=== PATIENT | female | born 1945 | race Caucasian/White ===

== ENCOUNTER 2016-11-05 17:39 | Emergency (ER) | payer MEDICARE, OTHER ==
[~2016-11-05] VITALS: Ht 165.1 cm; Wt 58.5 kg
[~2016-11-05 17:39] MED LIST: CARB100T2 PO; CARB200T43 PO; CYAN100 PO; ENAL20TA PO; GABA300C16 PO; MECL25TA2 PO
[2016-11-05 17:46] VITALS: Ht 165.1 cm; Wt 58.5 kg
[2016-11-05 19:09] VITALS: BP 196/80
[2016-11-05] MEDS ORDERED: SOD CHLORIDE 0.9% 500 ML IV STA (19:40)
[2016-11-05] MEDS ORDERED: ACETAMINOPHEN 500 MG TAB PO STA (19:40)
[2016-11-05] MEDS ORDERED: METOCLOPRAMIDE 10 MG INJ IV STA (19:40)
--- NOTE | 2016-11-05 19:49 | ERD ---
ER Documentation Chief Complaint Date/Time DATE: 11/05/16 TIME: 19:41 Chief Complaint HEADACHE,HIGH BLOOD PRESSURE STARTED TODAY HPI Patient is a 70-year-old female who presents with gradual onset, constant, moderate occipital and right parietal headache since this afternoon. Patient states that she has had similar headaches in the past in the setting of elevated blood pressure, and that her blood pressure has been elevated throughout the day. She reports that she is on treatment for urinary tract infection and has mild residual dysuria. She denies fever, vomiting, visual disturbance, stiff neck.The patient has been on the same antihypertensive regimen for the last 6 months, and saw her PMD 10 days ago. Her blood pressure is well controlled at that time. ROS All systems reviewed and are negative except as per history of present illness. Medications Home Meds Reported Medications Ergocalciferol (Vitamin D2) (VITAMIN D2) 50,000 Unit Capsule, 49451 UNIT PO Q7D , CAP 11/05/16 Oxcarbazepine* (Oxcarbazepine*) 150 Mg Tablet, 75 MG PO QHS, TAB 11/05/16 Candesartan Cilexetil (Candesartan Cilexetil) 8 Mg Tablet, 8 MG PO DAILY, TAB 11/05/16 Gabapentin* (Gabapentin*) 400 Mg Capsule, 400 MG PO TID, #90 CAP 11/05/16 Discontinued Reported Medications Cyanocobalamin* (Vitamin B12*) 100 Mcg Tab, 100 MCG PO DAILY, TAB 04/19/15 Gabapentin* (Gabapentin*) 300 Mg Capsule, 300 MG PO QHS, #60 CAP 04/19/15 Discontinued Scripts Carbamazepine* (Carbamazepine*) 100 Mg Tab.chew, 200 MG PO BID, #60 TAB.CHEW Prov:TAMIE JONES DO 07/05/15 Enalapril Maleate* (Enalapril Maleate*) 20 Mg Tablet, 20 MG PO DAILY, #30 TAB Prov:ROXANA HILARIO DO 04/27/15 Meclizine Hcl* (Antivert*) 25 Mg Tablet, 25 MG PO Q6H Y for dizziness, #20 TAB Prov:FAUSTO HARRIS MD 04/25/15 Carbamazepine* (Carbamazepine* XR) 200 Mg Tab.er.12h, 200 MG PO Q12, #60 TAB.SA Prov:AMELIA CONNOLLY 04/19/15 Allergies Allergies: Coded Allergies: No Known Allergy (Unverified , 11/05/16) PMhx/Soc Past medical history: Hypertension, trigeminal neuralgia Past surgical history: None Social history: Denies tobacco or alcohol History of Surgery: Yes () Anesthesia Reaction: No Hx Neurological Disorder: Yes (TRIGEMINAL NEURALGIA) Hx Respiratory Disorders: No Hx Cardiac Disorders: No Hx Psychiatric Problems: No Hx Miscellaneous Medical Probl: Yes (HTN, HYPERCHOLESTEROLEMIA) Hx Alcohol Use: No Hx Substance Use: No Hx Tobacco Use: No FmHx Family History: No coronary disease, No diabetes Physical Exam Vitals Vital Signs Date Time Temp Pulse Resp B/P Pulse Ox O2 Delivery O2 Flow Rate FiO2 11/05/16 19:09 196/80 11/05/16 17:46 98.1 67 18 196/87 98 Physical Exam Const: Alert, no acute distress Head: Atraumatic Eyes: Normal Conjunctiva, No pallor, no icterus ENT: Normal External Ears, Nose and Mouth. Mucous membranes moist Neck: Full range of motion..~ No meningismus. No cervical paraspinal tenderness Resp: Clear to auscultation bilaterally, No wheezes, no rales Cardio: Regular rate and rhythm, no murmurs Abd: Soft, non tender, non distended. Normal bowel sounds Skin: No petechiae or rashes Back: No midline or flank tenderness Ext: No cyanosis, or edema Neur: Awake and alert, Cranial nerves II through XII intact bilaterally, strength and sensation full in 4 extremities. Psych: Normal Mood and Affect Result Diagram: 11/05/16 1950 Results 24 hrs Laboratory Tests Test 11/05/16 19:50 Urine Color STRAW Urine Clarity CLEAR Urine pH 6.0 Urine Specific [place] 1.006 Urine Ketones NEGATIVEmg/dL Urine Nitrite NEGATIVEmg/dL Urine Bilirubin NEGATIVEmg/dL Urine Urobilinogen NEGATIVEmg/dL Urine Leukocyte Esterase 2+[place]/ul Urine Microscopic RBC 0/HPF Urine Microscopic WBC 4/HPF Urine Hemoglobin NEGATIVEmg/dL Urine Glucose NEGATIVEmg/dL Urine Total Protein NEGATIVEmg/dl Sodium Level 137mmol/L Potassium Level 4.3mmol/L Chloride Level 99mmol/L Carbon Dioxide Level 31mmol/L Anion Gap 11 Blood Urea Nitrogen 18mg/dl Creatinine 0.90mg/dl Glucose Level 91mg/dl Calcium Level 9.7mg/dl Current Medications Medications (Trade) Dose Ordered Sig/Louie Route PRN Reason Start Time Stop Time Status Last Admin Dose Admin Sodium Chloride (NS) 500 ml @ 500 mls/hr Q1H STAT IV 11/05/16 19:40 11/05/16 20:39 DC 11/05/16 20:28 Acetaminophen (Tylenol Tab) 1,000 mg ONCE STAT PO 11/05/16 19:40 11/05/16 19:41 DC 11/05/16 20:28 Metoclopramide HCl (Reglan) 10 mg ONCE STAT IV 11/05/16 19:40 11/05/16 19:41 DC 11/05/16 20:27 Procedures/MDM Patient is a 70-year-old female who presents with headache in the setting of hypertension. She states that she frequently has similar headaches when her blood pressure is running high. The headache was not sudden onset and there are no red flags for subarachnoid hemorrhage or meningitis. She has a normal neurological exam and no neurologic symptoms. Her symptoms resolved with IV fluids and Reglan. She has normal electrolytes, no evidence of endorgan damage , and no evidence of infection. I advised her to follow-up with her PMD in the next 2-3 days for blood pressure recheck, and to take Tylenol for further headache at home. Departure Diagnosis: Primary Impression: Headache Headache type: unspecified Headache chronicity pattern: episodic headache Intractability: not intractable Qualified Code: R51 - Nonintractable episodic headache, unspecified headache type Additional Impression: Hypertension Hypertension type: essential hypertension Qualified Code: I10 - Essential hypertension Condition: [place] Coronel MD Nov 05, 2016 19:49
[2016-11-05 20:14] LABS: ADD UMIC YES; UR ASCORBIC ACID NEGATIVE (NEGATIVE); UR BILIRUBIN (Dip) NEGATIVE (NEGATIVE); UR BLOOD (Dip) NEGATIVE (NEGATIVE); UR CLARITY CLEAR (CLEAR); UR COLOR STRAW (YELLOW); UR GLUCOSE (Dip) NEGATIVE (NEGATIVE); UR KETONES (Dip) NEGATIVE (NEGATIVE); UR LEUKOCYTE ESTERASE (Dip) 2+ Leu/ul (NEGATIVE); UR NITRITE (Dip) NEGATIVE (NEGATIVE); UR RBC 0 /HPF (0-5); UR SPECIFIC GRAVITY (Dip) 1.006 (1.003-1.030); UR TOTAL PROTEIN (Dip) NEGATIVE (NEGATIVE); UR UROBILINOGEN (Dip) NEGATIVE (NEGATIVE)
[2016-11-05] MEDS ORDERED: GABA400C14 PO (20:27)
[2016-11-05] MEDS ORDERED: CAND8TAB4 PO (20:28)
[2016-11-05] MEDS ORDERED: OXCA150T43 PO (20:28)
[2016-11-05] MEDS ORDERED: ERGO500037 PO (20:29)
[2016-11-05 20:40] LABS: CALCIUM 9.7 mg/dl (8.4-10.2); CREATININE 0.9 mg/dl (0.44-1.00); POTASSIUM 4.3 mmol/L (3.5-5.1)
== END 2016-11-05 22:35 | disposition home or self-care (01) ==
LOC: E/R 17:39
DX: R51 Headache (principal); R40.2252 Coma scale, best verbal response, oriented, at arrival to emergency department; I10 Essential (primary) hypertension; R40.2142 Coma scale, eyes open, spontaneous, at arrival to emergency department; R40.2362 Coma scale, best motor response, obeys commands, at arrival to emergency department
CPT/HCPCS: 36415; 80048; 81001; 87086; 96374; 99284; J2765; J7040

== ENCOUNTER 2018-08-16 23:50 | Emergency (ER) | payer MEDICARE, OTHER ==
[~2018-08-16] VITALS: Ht 154.9 cm; Wt 58.1 kg
[~2018-08-16 23:50] MED LIST changes: +CAND8TAB4 PO; -CARB100T2 PO; -CARB200T43 PO; -CYAN100 PO; -ENAL20TA PO; +ERGO500013 PO; -GABA300C16 PO; +GABA400C14 PO; -MECL25TA2 PO; +OXCA150T43 PO
[2018-08-16 23:53] VITALS: BP 179/82; PULSE 88; RESP 19; Ht 154.9 cm; Wt 58.1 kg
== END 2018-08-17 01:07 | disposition left against medical advice (07) ==
LOC: FTE 23:50
DX: Z53.21 Procedure and treatment not carried out due to patient leaving prior to being seen by health care provider (principal)